=== PATIENT | female | born 1940 | race Two or more races ===

== ENCOUNTER 2025-02-20 08:36 | Inpatient (IN) | payer OTHER ==
[~2025-02-20] VITALS: Ht 154.9 cm; Wt 0.5 kg
--- NOTE | 2025-02-20 08:48 | NUR ---
PTE [place] DE [place] REFIERE HABERSE CAIDO DE LA CAMA GOLPEANDOSE LA CADERA DERECHA, SE [place] SV MAS SE UBICA EN CAMA [address] CON [address] ELEVADAS.
--- NOTE | 2025-02-20 10:21 | NUR ---
SE NOIFICA A DE TRABAJO SOCIAL SOBRE CONSULTA Y SE KARI NUEMRO TELEFONICO DEL HIJO.
[2025-02-20 10:32] LABS: BASO % 0.4 % (0.1-1.2); EOS # 0.05 (0.04-0.54); EOS % 0.4 % (0.7-7.0); HEMATOCRIT 36.1 % (34.1-44.9); HEMOGLOBIN 11.7 g/dL (11.2-15.7); LYMPH % 8.1 % (19.3-53.1); MEAN CORPUSCULAR HEMOGLOBIN 27.8 pg (25.6-32.2); MONO # 1.12 (0.24-0.82); MONO % 9.1 % (4.7-12.5); NEUT # 10.08 (1.56-6.13); NEUT % 81.5 % (34.0-71.1); PLATELET COUNT 392 K/uL (163-369); RED BLOOD COUNT 4.21 M/uL (3.93-5.22); RED CELL DISTRIBUTION WIDTH 16.3 % (11.6-14.4)
[2025-02-20 10:42] LABS: PH,URINE 6.5 (5.0-8.0); URINE APPEARANCE Turbid; URINE BILIRRUBIN Negative (NEGATIVE); URINE BLOOD Small; URINE COLOR Yellow; URINE GLUCOSE Negative (NEGATIVE); URINE KETONE Negative (NEGATIVE); URINE LEUKOCYTE Large; URINE NITRATE Positive; URINE PROTEIN 30 (NEGATIVE)
[2025-02-20 10:45] LABS: URINE EPITHELIAL CELLS 4.9 uL (0.0-38.8); URINE RBC 28.1 uL (0.0-20.8)
[2025-02-20 10:47] LABS: ALBUMIN 2.3 gm/dL (3.4-5.0); BILIRUBIN TOTAL 0.25 mg/dL (0.3-1.2); CALCIUM 9.8 mg/dL (8.5-10.1); CREATININE SERUM 0.5 mg/dL (0.55-1.02); GFR 116.98; POTASSIUM 4.05 mEq/L (3.5-5.1); TOTAL PROTEIN 7.3 gm/dL (6.4-8.2)
[2025-02-20 11:00] LABS: INR 1.04; PROTHROMBIN TIME 11.3 SECONDS (9.0-11.5)
[2025-02-20 11:09] LABS: URINE WBC > 5548.3 uL (0.0-23.2)
[2025-02-20 11:10] LABS: URINE BACTERIA > 9821.5 uL (0.0-1933)
[2025-02-20 11:12] LABS: COVID-19 AG NEGATIVE (NEGATIVE)
[2025-02-20] MEDS ORDERED: CEFTRIAXONE SODIUM 2,000 MG VIAL IV ONE (11:30)
[2025-02-20] MEDS ORDERED: MEPERIDINE HCL/PF 50 MG/ML VIAL IM PRN (12:00)
[2025-02-20] MEDS ORDERED: OxyCODONE HCL/APAP UD (PERCOCET) PO PRN (12:00)
[2025-02-20] MEDS ORDERED: 0.9 % SODIUM CHLORIDE 1,000 ML IV SCH (12:00)
[2025-02-20] MEDS ORDERED: PROMETHAZINE HCL 50 MG/ML AMPUL IM PRN (12:00)
[2025-02-20] MEDS ORDERED: CEFAZOLIN SODIUM 1,000 MG VIAL IV ONE (12:00)
[2025-02-20] MEDS ORDERED: CEFTRIAXONE SODIUM 2,000 MG VIAL ONE (12:42)
[2025-02-20 14:42] LABS: CALCIUM 9.8 mg/dL (8.5-10.1)
[2025-02-20] MEDS ORDERED: CEFAZOLIN SODIUM 1,000 MG VIAL ONE (15:11)
[2025-02-20] MEDS ORDERED: VANCOMYCIN HCL 1,000 MG VIAL ONE (18:59)
[2025-02-20] MEDS ORDERED: POVIDONE-IODINE 118 ML BOTT TOP ONE ×2 (18:59→19:00)
[2025-02-20] MEDS ORDERED: MORPHINE SULFATE 4 MG/ML CARTRIDGE IV PRN (21:00)
[2025-02-20] MEDS ORDERED: OxyCODONE HCL 5 MG TABLET (ROXICODONE) PO PRN (21:00)
[2025-02-20] MEDS ORDERED: SODIUM CHLORIDE 0.45 % 1,000 ML IV SCH (21:00)
[2025-02-20] MEDS ORDERED: ONDANSETRON HCL 2 MG/ML VIAL IV PRN (21:00)
[2025-02-20] MEDS ORDERED: MORPHINE SULFATE 4 MG/ML VIAL IV ONE (23:30)
[2025-02-21] MEDS ORDERED: ACETAMINOPHEN 500 MG GEL..CAP PO SCH
[2025-02-21] MEDS ORDERED: GABAPENTIN 300 MG CAPSULE PO SCH (01:00)
[2025-02-21] MEDS ORDERED: CEFAZOLIN SODIUM 1,000 MG VIAL IV SCH (01:00)
[2025-02-21] MEDS ORDERED: CEFAZOLIN SODIUM 1,000 MG VIAL ONE (03:37)
[2025-02-21 07:52] LABS: BASO % 0.2 % (0.1-1.2); EOS # 0.02 (0.04-0.54); EOS % 0.2 % (0.7-7.0); LYMPH # 0.83 (1.18-3.74); LYMPH % 7.9 % (19.3-53.1); MEAN CORPUSCULAR HEMOGLOBIN 27.1 pg (25.6-32.2); MONO # 0.82 (0.24-0.82); MONO % 7.8 % (4.7-12.5); NEUT # 8.79 (1.56-6.13); NEUT % 83.1 % (34.0-71.1); PLATELET COUNT 242 K/uL (163-369); RED BLOOD COUNT 2.51 M/uL (3.93-5.22)
[2025-02-21 08:11] LABS: HEMATOCRIT 21.7 % (34.1-44.9); HEMOGLOBIN 6.8 g/dL (11.2-15.7)
[2025-02-21] MEDS ORDERED: FUROsemide 20 MG/2 ML VIAL IV PRN (08:30)
[2025-02-21 08:36] VITALS: BP 137/77; O2SAT 96
[2025-02-21] MEDS ORDERED: SENNOSIDES 1 TAB TABLET PO SCH (09:00)
[2025-02-21] MEDS ORDERED: APIXABAN 2.5 MG TABLET PO SCH (09:00)
[2025-02-21] MEDS ORDERED: SOD FERRIC GLUC COMPLX/SUCROSE 62.5 MG in 0.9 % SODIUM CHLORIDE 50 ML IV SCH (11:08)
[2025-02-21] MEDS ORDERED: PANTOPRAZOLE SODIUM 40 MG/VIAL VIAL IV NR (13:45)
[2025-02-21] MEDS ORDERED: Cyanocobalamin/Mecobalamin 1 TAB.SL SL NR (13:45)
[2025-02-21] MEDS ORDERED: CEFTRIAXONE SODIUM 2,000 MG in DEXTROSE 5 % IN WATER 100 ML IV SCH (17:00)
[2025-02-21] MEDS ORDERED: DONEPEZIL HCL 10 MG TABLET PO SCH (17:00)
[2025-02-21 17:12] VITALS: BP 114/55; O2SAT 99
[2025-02-21] MEDS ORDERED: PATIENTS OWN MEDICATION (MEDICAMENTO EN PISO) PO SCH (21:00)
[2025-02-21] MEDS ORDERED: FAMOTIDINE/PF 20 MG/2 ML VIAL IV SCH (21:00)
[2025-02-22] MEDS ORDERED: PANTOPRAZOLE SODIUM 80 MG in 0.9 % SODIUM CHLORIDE 100 ML IV SCH (00:30)
[2025-02-22 03:26] VITALS: BP 92/51; O2SAT 98
[2025-02-22 07:30] VITALS: BP 103/51; O2SAT 95
[2025-02-22] MEDS ORDERED: PANTOPRAZOLE SODIUM 40 MG/VIAL VIAL IV SCH (09:00)
[2025-02-22] MEDS ORDERED: Cyanocobalamin/Mecobalamin 1 TAB.SL SL SCH (09:00)
[2025-02-22] MEDS ORDERED: IRON FUM,PS/FOLIC ACID/VITC/B3 1 CAP CAPSULE PO SCH (09:00)
[2025-02-22 16:00] VITALS: BP 115/65; O2SAT 97
[2025-02-23] VITALS: BP 125/70; O2SAT 96
[2025-02-23 08:00] VITALS: BP 149/77; O2SAT 97
[2025-02-23 16:00] VITALS: BP 138/55; O2SAT 98
[2025-02-24 01:39] VITALS: BP 136/68; O2SAT 95
[2025-02-24 06:37] LABS: BASO % 0.4 % (0.1-1.2); EOS # 0.29 (0.04-0.54); HEMATOCRIT 39.9 % (34.1-44.9); HEMOGLOBIN 13.1 g/dL (11.2-15.7); LYMPH # 1.21 (1.18-3.74); LYMPH % 8.5 % (19.3-53.1); MEAN CORPUSCULAR HEMOGLOBIN 27.7 pg (25.6-32.2); MONO # 0.93 (0.24-0.82); MONO % 6.6 % (4.7-12.5); NEUT # 11.51 (1.56-6.13); NEUT % 81.2 % (34.0-71.1); PLATELET COUNT 428 K/uL (163-369); RED BLOOD COUNT 4.73 M/uL (3.93-5.22); RED CELL DISTRIBUTION WIDTH 15.4 % (11.6-14.4)
[2025-02-24 08:00] VITALS: BP 155/77; O2SAT 95
[2025-02-24] MEDS ORDERED: CIPRO500 MG PO (08:12)
[2025-02-24] MEDS ORDERED: TRAM1TAB98 PO (08:12)
[2025-02-24] MEDS ORDERED: ELIQUIS2.5 MG PO (08:12)
== END 2025-02-24 14:19 | disposition home or self-care (01) | DRG 522 ==
LOC: ER 08:36 → SURG 14:49
PROVIDERS: General Practice; ADMIT Orthopaedic Surgery; ATTEND Orthopaedic Surgery
PROC: 0MBM0ZZ Excision of Left Hip Bursa and Ligament, Open Approach (ICD-10-PCS; 2025-02-20)
PROC: 0QU70JZ Supplement Left Upper Femur with Synthetic Substitute, Open Approach (ICD-10-PCS; 2025-02-20)
PROC: 0SRS0JZ Replacement of Left Hip Joint, Femoral Surface with Synthetic Substitute, Open Approach (ICD-10-PCS; principal; 2025-02-20 17:45)
PROC: 30233N1 Transfusion of Nonautologous Red Blood Cells into Peripheral Vein, Percutaneous Approach (ICD-10-PCS; 2025-02-21)
DX: S72.032A Displaced midcervical fracture of left femur, initial encounter for closed fracture (principal); D62 Acute posthemorrhagic anemia; N39.0 Urinary tract infection, site not specified; M16.12 Unilateral primary osteoarthritis, left hip; M81.8 Other osteoporosis without current pathological fracture; I10 Essential (primary) hypertension; G30.9 Alzheimer's disease, unspecified; F02.80 Dementia in other diseases classified elsewhere, unspecified severity, without behavioral disturbance, psychotic disturbance, mood disturbance, and anxiety; M85.88 Other specified disorders of bone density and structure, other site